=== PATIENT | male | born 1930 | race Caucasian/White ===

== ENCOUNTER → 2017-11-29 | Outpatient (CLI) | payer MEDICARE, OTHER ==
[2017-11-29 14:16] LABS: CREATININE, SERUM 1.32 mg/dL (0.72-1.25)
--- NOTE | 2017-11-30 07:08 | Diagnostic Imaging Report ---
Exam: Head CT without contrast History: Dysphasia, shortness of breath, fatigue Comparison studies: None Technique: Axial images were obtained from the skull base to the vertex. Coronal and sagittal images reconstructed from the axial data. Intravenous contrast: None Findings: Scalp: No abnormalities. Bones: No fractures, blastic or lytic lesions. Brain sulci: Moderately prominent. Ventricles: Moderate compensatory dilatation. No hydrocephalus. Extra-axial spaces: No masses, no fluid collection. Parenchyma: No mass, acute hemorrhage or acute cortical vascular insults. Small chronic insult with encephalomalacia in the left superior cerebellum. Sellar/suprasellar region: No abnormalities. Craniocervical junction: Patent foramen magnum. No Chiari one malformation. Incidental findings: Atherosclerotic calcifications in the carotid siphons in intradural vertebral arteries. IMPRESSION: 1. Moderate generalized volume loss. 2. Chronic small left superior cerebellar insult. Signed by: Dr. Mynor Hebert M.D. on 11/30/2017 7:05 AM
--- NOTE | 2017-11-30 07:26 | Diagnostic Imaging Report ---
Exam: Soft tissue neck CT without IV contrast History: Fatigue, dysphasia Comparison studies: None Technique: Axial images were obtained from the skull base to the thoracic inlet. Coronal and sagittal images reconstructed from the axial data. Intravenous contrast: None Findings: Evaluation of the neck is limited due to the absence of intravenous contrast. In spite of this limitation, Soft tissues: Evaluation of the oral cavity is somewhat limited by metallic artifact related to dental amalgam. Otherwise, no mass or other abnormalities. Upper aerodigestive tract: No gross abnormalities in the nasopharynx, oropharynx, hypopharynx or supraglottic, glottic or infraglottic airway. No abnormalities in the trachea. Lymph nodes: No enlarged lymph nodes. Vessels: Cannot adequately evaluate in the absence of IV contrast. Scattered calcified atherosclerosis with moderate calcified atherosclerosis at the cervical carotid bulbs. Mild ectasia of the included thoracic aorta. Glands (thyroid, parotid and submandibular): Normal in size and symmetric. No masses. Paranasal sinuses: Clear aside from minimal mucosal thickening along the right maxillary sinus alveolar recess. Orbits: Bilateral lens replacements. Otherwise, no abnormalities. Temporal bones: No gross abnormalities. Skull base and facial bones: Intact. Cervical spine: Minimal anterolisthesis of C4 on C5. Multilevel facet arthrosis, worse/severe on the right at C4-C5. Mild foraminal stenosis on the left at C3-C4 and on the right at C4-C5 due to uncovertebral facet arthrosis. No significant canal stenosis. Incidental findings: Median sternotomy wires related to previous thoracic surgery. IMPRESSION: 1. No abnormalities identified to account for the patient's symptoms of dysphagia. 2. Incidental degenerative changes in the cervical spine and scattered calcified atherosclerosis. Signed by: Dr. Mynor Hebert M.D. on 11/30/2017 7:22 AM
== END ==
LOC: CT 13:01
PROVIDERS: ATTEND Internal Medicine Gastroenterology
DX: R13.14 Dysphagia, pharyngoesophageal phase (principal); R53.83 Other fatigue
CPT/HCPCS: 36415; 70450; 70490; 82565; 84520

== ENCOUNTER 2019-03-06 04:41 | Inpatient (IN) | payer MEDICARE, OTHER ==
[~2019-03-06] VITALS: Ht 175.3 cm; Wt 76.4 kg
--- OUTSIDE RECORDS SUMMARY | 2019-03-06 04:43 | XMS REPORT ---
Author Author [facility] Address Unknown Phone Unavailable Care Team Providers Care Industrial Machine Assembler Name Role Phone INGRID ESPINOZA Unavailable Unavailable Problems This patient has no known problems. Allergies, Adverse Reactions, Alerts This patient has no known allergies or adverse reactions. Medications This patient has no known medications. Results Test Description Test Time Test Comments Text Results Atomic Results Result Comments CT SOFT TISSUE NECK WO [place] [address] Patient Name: SRAVAN SEALS MR #: [id number] : 1930 Age/Sex: 87/M Req #: [id number] Adm Physician: Ordered by: INGRID ESPINOZA MD Report #: [id number] Location: CT Room/Bed: Procedure: [id number] CT/CT SOFT TISSUE NECK WO Exam Date: 11/29/17 Exam Time: 1457 REPORT STATUS: Signed Exam: Soft tissue neck CT without IV contrast History: Fatigue, dysphasia Comparison studies: None Technique: Axial images were obtained from the skull base to the thoracic inlet. Coronal and sagittal images reconstructed from the axial data. Intravenous contrast: None Findings: Evaluation of the neck is limited due to the absence of intravenous contrast. In spite of this limitation, Soft tissues: E valuation of the oral cavity is somewhat limited by metallic artifact related to dental amalgam. Otherwise, no mass or other abnormalities. Upper aerodigestive tract: No gross abnormalities in the nasopharynx, oropharynx, hypopharynx or supraglottic, glottic or infraglottic airway. No abnormalities in the trachea. Lymph nodes: No enlarged lymph nodes. Vessels: Cannot adequately evaluate in the absence of IV contrast. Scattered calcified atherosclerosis with moderate calcified atherosclerosis at the cervical carotid bulbs. Mild ectasia of the included thoracic aorta. Glands (thyroid, parotid and submandibular): Normal in size and symmetric. No masses. Paranasal sinuses: Clear aside from minimal mucosal thickening along the right maxillary sinus alveolar recess. Orbits: Bilateral lens replacements. Otherwise, no abnormalities. Temporal bones: No gross abnormalities. Skull base and facial bones: Intact. Cervical spine: Minimal anterolisthesis of C4 on C5. Multilevel facet arthrosis, worse/severe on the right at C4-C5. Mild foraminal stenosis on the left at C3-C4 and on the right at C4-C5 due to uncovertebral facet arthrosis. No significant canal stenosis. Incidental findings: Median sternotomy wires related to previous thoracic surgery. IMPRESSION: 1. No abnormalities identified to account for the patient's symptoms of dysphagia. 2. Incidental degenerative changes in the cervical spine and scattered calcified atherosclerosis. Signed by: Dr. Verena Hebert M.D. on 11/30/2017 7:22 AM Dictated By: VERENA HEBERT MD 1 Transcribed By: RODNEY on 11/30/17721 COPY TO: INGRID ESPINOZA MD CT BRAIN [place] [address] Patient Name: SRAVAN SEALS MR #: [id number] : 1930 Age/Sex: 87/M Req #: [id number] Adm Physician: Ordered by: INGRID ESPINOZA MD Report #: [id number] Location: CT Room/Bed: Procedure: [id number] CT/CT BRAIN WO Exam Date: 11/29/17 Exam Time: 1457 REPORT STATUS: Signed Exam: Head CT without contrast History: Dysphasia, shortness of breath, fatigue Comparison studies: None Technique: Axial images were obtained from the skull base to the vertex. Coronal and sagittal images reconstructed from the axial data. Intravenous contrast: None Findings: Scalp: No abnormalities. Bones: No fractures, blastic or lytic lesions. Brain sulci: Moderately prominent. Ventricles: Moderate compensatory dilatation. No hydrocephalus. Extra-axial spaces: No masses, no fluid collection. Parenchyma: No mass, acute hemorrhage or acute cortical vascular insults. Small chronic insult with encephalomalacia in the left superior cerebellum. Sellar/suprasellar region: No abnormalities. Craniocervical junction: Patent foramen magnum. No Chiari one malformation. Incidental findings: Atherosclerotic calcifications in the carotid siphons in intradural vertebral arteries. IMPRESSION: 1. Moderate generalized volume loss. 2. Chronic small left superior cerebellar insult. Signed by: Dr. Verena Hebert M.D. on 11/30/2017 7:05 AM Dictated By: VERENA HEBERT MD 4 Transcribed By: RODNEY on 11/30/17704 COPY TO: INGRID ESPINOZA MD
[2019-03-06] MEDS ORDERED: ONDANSETRON HCL INJ 2MG/ML 2ML 2 MG/ML VIAL IV STA (04:47)
[2019-03-06] MEDS ORDERED: PANTOPRAZOLE 40 MG 10ML VIAL IV STA (04:47)
[2019-03-06] MEDS ORDERED: NORCO 7.5-3251 EACH PO (04:50)
[2019-03-06] MEDS ORDERED: METOPROLOL TART25 MG PO (04:50)
[2019-03-06] MEDS ORDERED: LASIX40 MG PO (04:50)
[2019-03-06] MEDS ORDERED: LYRICA50 MG PO (04:50)
[2019-03-06] MEDS ORDERED: MIRTAZAPINE15 MG PO (04:50)
[2019-03-06] MEDS ORDERED: PLAVIX75 MG PO (04:50)
[2019-03-06] MEDS ORDERED: METOPROLOL TARTRATE INJ 1 MG/ML VIAL IV ONE (05:00)
[2019-03-06] MEDS ORDERED: HEPARIN 25,000U/0.45% NS 250ML 900 UNIT in Premix Bag 250 ML IV SCH ×4 (05:00→07:15)
[2019-03-06] MEDS ORDERED: HEPARIN SOD (PORCINE) 5,000 UNIT/ML VIAL IV ONE ×2 (05:00→07:00)
[2019-03-06] MEDS ORDERED: ONDANSETRON HCL INJ 2MG/ML 2ML 2 MG/ML VIAL ONE (05:13)
[2019-03-06 05:18] LABS: BASOPHILS % 0.4 % (0.0-1.0); EOSINOPHILS # (AUTO) 0.2 (0.0-0.4); EOSINOPHILS % 2.2 % (0.0-6.0); HEMATOCRIT 44.1 % (38.2-49.6); LYMPHOCYTES # (AUTO) 0.9 (1.0-3.2); MEAN CORPUSCULAR HEMOGLOBIN 33.5 pg (28-32); MEAN CORPUSCULAR HGB CONC 31.7 g/dL (31-35); MEAN CORPUSCULAR VOLUME 105.5 fL (81-99); MONOCYTES # (AUTO) 0.9 (0.2-0.8); MONOCYTES % 12.8 % (4.4-11.3); NEUTROPHILS # (AUTO) 5.2 (2.1-6.9); PLATELET COUNT 148 x10e3/uL (140-360); RED BLOOD COUNT 4.18 x10e6/uL (4.3-5.7); RED CELL DISTRIBUTION WIDTH 16.9 % (11.7-14.4)
--- NOTE | 2019-03-06 05:24 | NUR ---
PT WITH MULTIFOCAL PVCS, COUPLETTS; NOTIFIED AND STATES SPOKE WITH CARDIOLOGY. NO FURTHER ORDERS GIVEN.
[2019-03-06 05:26] LABS: INR 1.13
[2019-03-06 05:27] LABS: PARTIAL THROMBOPLASTIN TIME 42.2 seconds (23.8-35.5)
[2019-03-06 05:34] LABS: ALBUMIN 3.4 g/dL (3.5-5.0); ALBUMIN/GLOBULIN RATIO 0.8 (0.8-2.0); ANION GAP 14.1 mmol/L (8-16); CALCIUM 9.3 mg/dL (8.4-10.2); CREATININE, SERUM 1.19 mg/dL (0.72-1.25); POTASSIUM 4.1 mmol/L (3.5-5.1)
[2019-03-06 05:41] LABS: CREATINE KINASE MB 1.1 ng/mL (0-5.0)
--- NOTE | 2019-03-06 06:15 | Diagnostic Imaging Report ---
EXAMINATION: CHEST SINGLE (PORTABLE) INDICATION: ^chest pain COMPARISON: None FINDINGS: AP view TUBES and LINES: Median sternotomy wires LUNGS: Lungs are well inflated. There are bibasilar atelectasis. There is mild prominence of the central pulmonary vasculature, consistent with pulmonary venous congestion. PLEURA: No pleural effusion or pneumothorax. HEART AND MEDIASTINUM: Cardiac size is severely enlarged. BONES AND SOFT TISSUES: No acute osseous lesion. Soft tissues are unremarkable. UPPER ABDOMEN: No free air under the diaphragm. IMPRESSION: Severe cardiomegaly with mild central pulmonary venous congestion. Signed by: Dr. Claudy Gustafson M.D. on 03/06/2019 6:12 AM
--- NOTE | 2019-03-06 06:23 | Diagnostic Imaging Report ---
EXAM: CT Chest WITHOUT contrast INDICATION: ^eval for lodged food bolus COMPARISON: None TECHNIQUE: Chest was scanned utilizing a multidetector helical scanner from the lung apex through the level of the adrenal glands without administration of IV contrast. Absence of intravenous contrast decreases sensitivity for detection of lymphadenopathy and vascular pathology. Coronal and sagittal reformations were obtained. Routine protocol was performed. IV CONTRAST: None COMPLICATIONS: None RADIATION DOSE: Total DLP: 546.42 mGy*cm Estimated effective dose: (DLP x 0.014 x size factor) mSv CTDIvol has been reviewed. It is below the limits set by the Radiation Protocol Committee (RPC). Dose modulation, iterative reconstruction, and/or weight based adjustment of the mA/kV was utilized to reduce the radiation dose to as low as reasonably achievable. FINDINGS: LINES/ TUBES: Median sternotomy wires and numerous mediastinal clips related to CABG. LUNGS AND AIRWAYS: Mild interlobular septal thickening predominantly in the lower lobes. Bilateral mild nonspecific scarring especially in the lingula, which may be postoperative in nature. Mild nonspecific groundglass opacities in the dependent portion of the right upper lobe. Questionable in the anterior left upper lobe. Airways are normal. PLEURA: Scattered calcified pleural plaques in the right lung. Trace right pleural effusion. No pneumothorax. HEART AND MEDIASTINUM: The thyroid gland is normal. No mediastinal, hilar or axillary lymphadenopathy. Multiple small, benign-appearing mediastinal lymph nodes. The heart is severely enlarged. There is no pericardial effusion. There are significant atherosclerotic calcifications in the aorta and coronary arteries. Main pulmonary artery measures 3.6 cm. Ascending aorta measures 4.3 cm. UPPER ABDOMEN: The liver has a mildly lobulated appearance with enlargement of the left hepatic and caudate lobes. Trace ascites around the liver and spleen. 2.3 cm left parapelvic renal cyst. Moderate vascular calcifications. Engorgement of mesenteric vessels. 1.4 cm nodularity adjacent to the SMA (series 2, image 124). BONES: The visualized bony thorax is within normal limits. SOFT TISSUES: Unremarkable. IMPRESSION: 1. Unremarkable esophagus. No evidence of obstruction. 2. Severe cardiomegaly with postoperative changes of CABG. Mildly prominent main pulmonary artery measures 3.6 cm. 3. Findings of central pulmonary venous congestion and mild nonspecific scarring. 4. Scattered mild groundglass opacities in both upper lobes, likely infectious in etiology. 5. Cirrhosis with ascites. Signed by: Dr. Claudy Gustafson M.D. on 03/06/2019 6:20 AM
[2019-03-06 06:45] LABS: CLARITY,URINE CLOUDY (CLEAR); COLOR,URINE YELLOW (YELLOW); LEUKOCYTE ESTERASE ,URINE NEGATIVE (NEGATIVE); NITRITE,URINE NEGATIVE (NEGATIVE); PROTEIN,URINE DIPSTICK 3+ (NEGATIVE)
[2019-03-06] MEDS ORDERED: SODIUM CHLORIDE FLUSH 10 ML SYR INJ PRN (06:45)
[2019-03-06] MEDS ORDERED: LEVOFLOXACIN 750MG/D5W 150ML IV SCH (06:45)
[2019-03-06 06:46] LABS: BILIRUBIN,URINE 1+ (NEGATIVE); KETONES,URINE NEGATIVE (NEGATIVE); URINE UROBILINOGEN 1 mg/dL (0.2 - 1)
--- NOTE | 2019-03-06 06:52 | NUR ---
LIBAN FROM PHARMACY HERE AT [facility] VERIFYING ACCURATE HEPARIN STARTING DOSAGE. REORDERED HEPARIN ACCORDING TO THE NEW WEIGHT. LIBAN FROM PHARMACY TO FOLLOW UP ACCORDING TO STEP 4 OF THE HOSPITAL HEPARIN PROTOCOL.
[2019-03-06 07:04] LABS: BACTERIA,URINE FEW /HPF; EPITHELIAL CELLS,URINE FEW /LPF
--- NOTE | 2019-03-06 07:05 | NUR ---
REPORT GIVEN TO JEET GALLOWAY DAY SHIFT NURSE.
--- NOTE | 2019-03-06 07:52 | NUR ---
HISTORY AND PHYSICAL cc; rapid HR HPI: 88yoM, PCP , ate an orange, then felt like it was stuck in throat. No cough; DId have SOB; Found to have A.fib with RVR and ground glass findings on CT lungs; also findings of liver cirrhosis. PMH: CAD s/p CABG, HTN PShx: CABG allergies see emr fh/Sh; Meds; see MAR ros; no f/c/s/N/V/D/MAGALLON/vision changes/back pain/leg pain/skin rash v/s; revd PE tired appearing anicteric ns1s2; IRREGULAR mod bs soft nt nd 2+ leg edema B/L skin dry a&ox3; alamo n. mood labs/meds rev'd A/P: 88yoM A.fib with rVR CAD with hx CABG Cardiomegaly NUNU Hyperglycemia Cirrhosis Acute bronchitis Peripheral edema PLAN AV blockade; AC hba1c/lipids/TSH Physical therapy consult AC Hero Mondragon MD, PhD
[2019-03-06 08:15] LABS: CHOL/HDL RATIO 2.3 (3.9-4.7)
--- NOTE | 2019-03-06 08:24 | NUR ---
DR VEGA IN ROOM WITH PT
[2019-03-06 08:35] LABS: THYROID STIMULATING HORMONE 4.002 uIU/mL (0.350-4.940)
[2019-03-06] MEDS: LEVOFLOXACIN 750MG/D5W 150ML 150 ML IV SCH (08:44)
[2019-03-06] MEDS: FAMOTIDINE 20 MG/2 ML VIAL IV SCH ×2 (08:44→20:34)
[2019-03-06] MEDS: PREGABALIN 50 MG CAP PO SCH (08:48)
[2019-03-06] MEDS: CLOPIDOGREL BISULFATE 75 MG TAB PO SCH (08:48)
[2019-03-06] MEDS ORDERED: PANTOPRAZOLE 40 MG 10ML VIAL IV SCH (09:00)
[2019-03-06] MEDS: FUROSEMIDE 20 MG TAB PO SCH (11:52)
[2019-03-06 12:23] LABS: CREATINE KINASE MB 1.3 ng/mL (0-5.0)
[2019-03-06 13:25] VITALS: BP 141/67
--- NOTE | 2019-03-06 13:25 | NUR ---
PATIENT RECEIVED FROM ER PER STRETCHER. ALERT AND VERBALLY RESPONSIVE. SKIN WARM AND DRY TO TOUCH. RESPIRATION EVEN AND UNLABORED; O2 IN PLACE VIA N/C. BRUISES TO BOTH ARMS AND LEFT THIGH, SCRATCHES TO LEFT LEG. DENIED PAIN AT THIS TIME. PATIENT ORIENTED TO SURROUNDINGS. BED IN LOWER POSITION, CALL LIGHT AT REACH, INSTRUCTED TO CALL FOR ASSISTANCE NEEDED. AT BED SIDE.
[2019-03-06 13:42] VITALS: BP 141/67
[2019-03-06] MEDS: METOPROLOL TARTRATE 25 MG TAB PO SCH ×2 (14:41→21:11)
[2019-03-06 15:13] VITALS: BP 111/68
--- NOTE | 2019-03-06 17:00 | NUR ---
BED SIDE ECHO COMPLETED. PATIENT IN BED RESTING, HEPARIN DRIP IN PROGRESS. CALL LIGHT AT REACH.
--- NOTE | 2019-03-06 17:46 | History and Physical ---
Cardiac Consultation REASON FOR CONSULTATION: Chest pain, atrial fibrillation. HISTORY: An 88-year-old gentleman, very poor historian. He is known with coronary artery disease. He had coronary artery bypass surgery for 4-vessel in 2005. He is known to have aortic regurgitation, hypertension, peripheral neuropathy, and peripheral arterial vascular disease. The patient seen and followed by Dr. Cisneros in my office. The patient really truly does not want much to be done. Latest ischemic evaluation was in June 2017. At that time, it was very abnormal and cardiac catheterization with possible intervention recommended, however, the patient elected only to be treated medically. Regardless, the patient did well and he is doing well. However, for the last 6 months or so or even more, he does have easy fatigability, shortness of breath on exertion, and he need "to space himself." He is taking his medication as described. He denied having any anginal chest pain. However, he does have class 3 symptoms of shortness of breath and chest tightness in addition to some orthopnea, but no paroxysmal nocturnal dyspnea. There is no syncope or presyncope. The patient came to this institution because "he was eating orange and it stuck in his esophagus." Basically chest tightness. He came to here. He was in atrial fibrillation with fast ventricular response. The case discussed with the ER physician, given metoprolol, started on IV heparin. Serial cardiac enzymes to be done. Beta-yasmin increased and medication adjusted and to be admitted. He had CT scan and chest x-ray and it is suspicious of pneumonia. He was started on Levaquin by ER team. Finding of liver cirrhosis also noted on that scan and ascites. I visited with the patient, was doing better. His heart rate is now in the 90s, still in atrial fibrillation. He has had no more chest tightness or pressure. He is weak and he said I am like that for sometime. The patient really truly minimize his symptoms and he only wants medical and conservative approach and he is scared. HOME MEDICATIONS: Include Plavix 75 mg a day, metoprolol succinate 25 mg a day, Lasix 20 mg a day, mirtazapine 30 mg a day, CoQ10, Vicodin. ALLERGIES: PENICILLIN AND MORPHINE. THE PATIENT REFUSED STATINS IN THE PAST. PAST MEDICAL HISTORY: 1. Coronary artery disease, coronary artery bypass surgery in 2005 for 4-vessels, left internal mammary artery to LAD, saphenous vein graft to the PDA, saphenous vein graft to the 1st obtuse marginal, saphenous vein graft to the 2nd obtuse marginal. 2. Hypertension. 3. Aortic stenosis and regurgitation. 4. Peripheral arterial vascular disease. 5. Peripheral neuropathy. 6. Colon cancer, status post surgery and chemotherapy in 2005. 7. Tonsillectomy. 8. Fistulectomy. SOCIAL HISTORY: He is . He stopped smoking many years ago. He is a social alcohol drinker. He is retired. FAMILY HISTORY: Father in his 80s with kidney failure. Mother in her 70s, questionable cause of . He lost his only two brothers and he does have five healthy children and grandchildren. REVIEW OF SYSTEMS: GENERAL: Weakness, failure to thrive. No fever, no chills. HEENT: Decreased hearing. PULMONARY: Class 3 to 4 shortness of breath on exertion. CARDIAC: No angina, but severe shortness of breath on exertion, orthopnea. GI: Poor appetite. HEMATOLOGY: No bleeding. No bruising. : Increased frequency, incontinence. MUSCULOSKELETAL: Back pain. PERIPHERAL VASCULAR: Leg edema and claudication. NEUROLOGIC: Weakness, dizziness, poor appetite. PHYSICAL EXAMINATION: VITAL SIGNS: Height of 5 feet 9 inches, weight of 164 pounds. Blood pressure is 110/80, heart rate of 90, irregularly irregular of atrial fibrillation, temperature of 98 Fahrenheit. HEENT: Decreased hearing noted. NECK: Elevation of jugular venous pulsation. CHEST: Bilateral basal crackles. HEART: Irregularly irregular rate of atrial fibrillation. PMI in fifth left intercoastal space. Aortic ejection systolic murmur left sternal border. ABDOMEN: Liver edge is palpable. Soft. EXTREMITIES: Mild peripheral edema. Decreased pulses. NEUROLOGIC: Generalized weakness. No localized deficits. LABORATORY DATA: Sodium 138, potassium 4.1, bicarb of 26, BUN 21, creatinine of 1.2, glucose of 147. White blood cell count of 7.3, hemoglobin 14, hematocrit 44%. Triglycerides of 104, total cholesterol of 112, HDL of 49, LDL of 42, TSH of 4. Chest x-ray, cardiomegaly and chronic changes. IMPRESSION AND PLAN: 1. Chest pain, plausible with patient with bypass surgery in 2005 to be advanced coronary artery disease and myocardial infarction. 2. Atrial fibrillation with rapid ventricular response. 3. Exacerbation of systolic congestive heart failure. 4. Aortic stenosis murmur. 5. Peripheral arterial vascular disease. 6. Hypercholesteremia. 7. Debility and weakness. 8. Very severe advanced congestive heart failure like symptoms. 9. Liver cirrhosis diagnosed on CT scan today. Cardiac brunner, recommendation will be as follows, continuation of IV heparin for the time being, serial cardiac enzymes, checking BMP. Beta-yasmin, diuretics, antiplatelet agent, and heparin. We should consider probably CHELLE inhibitor or ARB if his blood pressure permits. The patient's prognosis is guarded. He is having progressive advanced congestive heart failure symptoms. He expresses wishes to be treated conservatively. Probably, we should also discuss code status. I will do that when he reach a room out of ER. We will follow patient's progression with you. I would like to thank you for the kind referral. MD JAZMIN Kaufman/GLENDYL /[id number]
[2019-03-06 19:45] VITALS: BP 109/66
[2019-03-06] MEDS ORDERED: HYDROCODONE/APAP 7.5MG-325MG 1 EA TAB PO PRN (20:30)
--- NOTE | 2019-03-06 20:30 | NUR ---
PATIENT REQUESTING PAIN MEDICATION. CALLED DR. VEGA, RECEIVED ORDERS.
--- NOTE | 2019-03-06 20:30 | NUR ---
LAB CRITICAL FOR PTT 144. REDRAW BLOOD.
--- NOTE | 2019-03-06 20:40 | NUR ---
X1 STICK FOR PTT AND SENT FOR LABS.
[2019-03-06 22:54] VITALS: BP 109/66
[2019-03-07] VITALS (7 sets, daily range): BP systolic 97–115; BP diastolic 54–74
[2019-03-07] MEDS: HYDROCODONE/APAP 7.5MG-325MG 1 EA TAB PO PRN ×4 (01:17→19:30)
[2019-03-07] MEDS: METOPROLOL TARTRATE 25 MG TAB PO SCH ×2 (05:26→14:43)
[2019-03-07 06:07] LABS: BASOPHILS % 0.5 % (0.0-1.0); EOSINOPHILS # (AUTO) 0.1 (0.0-0.4); EOSINOPHILS % 1.7 % (0.0-6.0); HEMATOCRIT 38.2 % (38.2-49.6); HEMOGLOBIN 12.4 g/dL (14.0-18.0); LYMPHOCYTES # (AUTO) 0.9 (1.0-3.2); LYMPHOCYTES % 10.2 % (18.0-39.1); MEAN CORPUSCULAR HGB CONC 32.5 g/dL (31-35); MEAN CORPUSCULAR VOLUME 104.7 fL (81-99); MONOCYTES # (AUTO) 1.4 (0.2-0.8); MONOCYTES % 16.2 % (4.4-11.3); NEUTROPHILS # (AUTO) 5.9 (2.1-6.9); NEUTROPHILS % 70.6 % (38.7-80.0); PLATELET COUNT 125 x10e3/uL (140-360); RED BLOOD COUNT 3.65 x10e6/uL (4.3-5.7); RED CELL DISTRIBUTION WIDTH 16.6 % (11.7-14.4)
--- NOTE | 2019-03-07 06:23 | Diagnostic Imaging Report ---
EXAMINATION: CHEST SINGLE (PORTABLE) INDICATION: Pneumonia. COMPARISON: Chest x-ray 03/06/2019. FINDINGS: AP view TUBES and LINES: Median sternotomy wires. A new right PICC line with tip at mid SVC. LUNGS: Lungs are moderately inflated. There are bibasilar atelectasis. There is mild prominence of the central pulmonary vasculature, consistent with pulmonary venous congestion. PLEURA: No pleural effusion or pneumothorax. HEART AND MEDIASTINUM: Cardiac size is severely enlarged. BONES AND SOFT TISSUES: No acute osseous lesion. Chronic appearing fracture deformity of the right humeral neck and head. Soft tissues are unremarkable. UPPER ABDOMEN: No free air under the diaphragm. IMPRESSION: Stable severe cardiomegaly with mild central pulmonary venous congestion. Signed by: Dr. Claudy Gustafson M.D. on 03/07/2019 6:19 AM
[2019-03-07 06:46] LABS: ALANINE AMINOTRANSFERASE 9 IU/L (0-55); ALBUMIN 2.7 g/dL (3.5-5.0); ALBUMIN/GLOBULIN RATIO 0.8 (0.8-2.0); ALKALINE PHOSPHATASE 132 IU/L (40-150); ANION GAP 11.7 mmol/L (8-16); BLOOD UREA NITROGEN 22 mg/dL (7-26); BUN/CREATININE RATIO 22 (6-25); CALCIUM 8.5 mg/dL (8.4-10.2); CARBON DIOXIDE 25 mmol/L (22-29); CHLORIDE 103 mmol/L (98-107); CREATININE, SERUM 1.02 mg/dL (0.72-1.25); EST GLOMERULAR FILTRATION RATE > 60 ML/MIN (60-); GLUCOSE 88 mg/dL (74-118); POTASSIUM 3.7 mmol/L (3.5-5.1); SODIUM 136 mmol/L (136-145)
[2019-03-07 07:25] LABS: CREATINE KINASE MB 0.8 ng/mL (0-5.0)
--- NOTE | 2019-03-07 07:25 | NUR ---
PATIENT SITTING AT BED SIDE WATCHING TV, NO RESPIRATORY DISTRESS OBSERVED. ALL PERSONAL ITEMS CLOSE TO PATIENT. BED IN LOWER POSITION, CALL LIGHT AT REACH.
--- NOTE | 2019-03-07 07:26 | NUR ---
Addendum to H&P PMH: colon cancer s/p resection, chr leg edema PSHx: CABG, partial colon resection SH: ;no cigs/etoh; single Hero Mondragon MD, PhD
--- NOTE | 2019-03-07 07:29 | NUR ---
IM- progress note O/N no events ros; no f/c/s/N/V/D/MAGALLON/vision changes/back pain/leg pain/skin rash v/s; revd PE tired appearing anicteric ns1s2; IRREGULAR mod bs soft nt nd 2+ leg edema B/L skin dry a&ox3; alamo n. mood labs/meds rev'd A/P: 88yoM A.fib with rVR CAD with hx CABG Cardiomegaly NUNU Hyperglycemia Cirrhosis Acute bronchitis Peripheral edema PLAN AV blockade; AC hba1c/lipids/TSH Physical therapy consult AC 03/07 Hba1c/LDL 5.4/42; continue diuresis; strict I/O.HR better; check renal fn. Hero Mondragon MD, PhD
[2019-03-07 07:40] LABS: CHOL/HDL RATIO 2.2 (3.9-4.7)
--- NOTE | 2019-03-07 08:00 | NUR ---
SPOKE WITH MD REGARDING ABNORMAL LAB RESULT, NO NEW ORDER RECEIVED.
[2019-03-07] MEDS ORDERED: SODIUM CHLORIDE 0.9% 250ML 250 ML ONE (08:48)
[2019-03-07] MEDS: CLOPIDOGREL BISULFATE 75 MG TAB PO SCH (09:00)
--- NOTE | 2019-03-07 09:00 | NUR ---
PATIENT NOTED WITH PTT OF 132.1, PTT RECHECKED WITH THE READING OF 139.8. HEPARIN INFUSION ON HOLD FOR 60 MN PER PROTOCOL, WILL DECREASE BY 200UNITS/HR. CALLED , MESSAGE LEFT, AWAITING CALL LBACK.
[2019-03-07] MEDS: PREGABALIN 50 MG CAP PO SCH (09:09)
[2019-03-07] MEDS: LEVOFLOXACIN 750MG/D5W 150ML 150 ML IV SCH (09:09)
[2019-03-07] MEDS: FAMOTIDINE 20 MG/2 ML VIAL IV SCH ×2 (09:09→21:39)
--- NOTE | 2019-03-07 09:56 | NUR ---
CALL BACK RECEIVED FROM DR JOHNSON, NOTIFIED OF ABNORMAL LAB RESULT. NEW ORDERS RECEIVED TO D/C HEPARIN AND GIVE PLAVIX.
[2019-03-07] MEDS: FUROSEMIDE 20 MG TAB PO SCH (10:05)
--- NOTE | 2019-03-07 11:47 | NUR ---
SPOKE WITH MD REGARDING PLAVIX, ORDER RECEIVED TO HOLD FOR TODAY.
[2019-03-07] MEDS: FUROSEMIDE INJ 10 MG/ML 4 ML VIAL IV SCH ×2 (12:47→21:00)
--- NOTE | 2019-03-07 13:05 | NUR ---
PATIENT OFF UNIT TO RADIOLOGY.
--- NOTE | 2019-03-07 13:56 | NUR ---
PATIENT BACK TO UNIT FROM RADIOLOGY. OUT OF BED TO CHAIR TALKING TO . CALL LIGHT AT REACH.
--- NOTE | 2019-03-07 14:38 | Diagnostic Imaging Report ---
Abdomen, 3 views dated 03/07/2019. History: Cirrhosis. Findings: The intestinal gas pattern is nonobstructive. There no masses. Arterial, iliac and femoral vascular calcification. No subdiaphragmatic air. There is moderate-severe lumbar spine scoliosis and degenerative changes. IMPRESSION: No acute abdominal abnormality. Signed by: Dr. Seun Interiano DO on 03/07/2019 2:35 PM
--- NOTE | 2019-03-07 15:14 | Diagnostic Imaging Report ---
EXAM: CT Abdomen and Pelvis WITHOUT contrast INDICATION: Abdominal pain COMPARISON: Chest CT, 03/06/2019 TECHNIQUE: Abdomen and pelvis were scanned utilizing a multidetector helical scanner from the lung base to the pubic symphysis without administration of IV contrast. Absence of intravenous contrast decreases sensitivity for detection of focal lesions and vascular pathology. Coronal and sagittal reformations were obtained. Routine protocol was performed. Dose modulation, iterative reconstruction, and/or weight based adjustment of the mA/kV was utilized to reduce the radiation dose to as low as reasonably achievable. IV CONTRAST: None. ORAL CONTRAST: None RADIATION DOSE: Total DLP: 482.24 mGy*cm Estimated effective dose: (DLP x 0.015 x size factor) mSv COMPLICATIONS: None FINDINGS: LINES and TUBES: None. LOWER THORAX: Lung bases clear. Trace pleural effusions. Marked cardiomegaly. HEPATOBILIARY: Lobulated hepatic borders which may be seen with cirrhosis. No focal hepatic lesions. No biliary ductal dilation. GALLBLADDER: Calcified gallstones seen. No gallbladder wall thickening. No wall thickening. SPLEEN: No splenomegaly. PANCREAS: No focal masses or ductal dilatation. ADRENALS: No adrenal nodules KIDNEYS/URETERS: No hydronephrosis. 2.0 cm left parapelvic renal cyst. No contour deforming mass. 0.9 cm nonobstructing intrarenal calculus on the right. 0.2 cm punctate nonobstructing renal calculus on the left. GI TRACT: No abnormal distention, wall thickening, or evidence of bowel obstruction. There are diverticula throughout the colon with no CT evidence for acute diverticulitis. Appendix is normal. PELVIC ORGANS/BLADDER: Urinary bladder appears unremarkable. No discrete abnormal mass or fluid collection in the pelvis. LYMPH NODES: No dominant lymph node mass in the abdomen, retroperitoneum or pelvis. There are multiple prominent para-aortic lymph nodes measuring 1.3 cm (series 2, image 37), 1.3 cm (image 34), 1.1 cm (image 29). VESSELS: The abdominal aorta is atherosclerotic with extensive calcified plaque, no aneurysm. PERITONEUM / RETROPERITONEUM: Small diffuse volume of ascites. No pneumoperitoneum. BONES: No acute or suspicious bony lesion. Degenerative changes are seen in the spine. Wire sternotomy sutures are present. SOFT TISSUES: Superficial surrounding soft tissue unremarkable. There are bilateral inguinal hernias containing fat. IMPRESSION: 1. Cirrhotic hepatic morphology. Small volume of ascites. Diffuse mesenteric edema. 2. Cholelithiasis. No gallbladder wall thickening. No evidence for dilatation of the biliary tree. 3. Bilateral nonobstructing intrarenal calculi, largest measuring 9 mm on the right. 4. Moderate para-aortic lymphadenopathy which may be reactive. In the proper clinical setting, neoplastic etiology is also a consideration. Staff: Camron Signed by: Dr. Owen Lyon M.D. on 03/07/2019 3:11 PM
--- NOTE | 2019-03-07 16:50 | NUR ---
PATIENT URINAL EMPTIED. SITTING AT BED SIDE TALKING TO FAMILY MEMBERS VISITING. CALL LIGHT AT REACH.
--- NOTE | 2019-03-07 19:39 | NUR ---
RECEIVED PT IN BED AOX3 .C/O PAIN AT THE LEFT HIP .RESPIRATIONS ARE EVEN AND UNLABORED .FAMILY AT HE BEDSIDE .CALL LIGHT WITH IN REACH .CONTINUE TO MONITOR
[2019-03-07] MEDS ORDERED: ZOLPIDEM TARTRATE 5 MG TAB PO PRN (22:30)
[2019-03-07] MEDS: ACETAMINOPHEN 325 MG TAB PO PRN (22:56)
[2019-03-08 00:35] VITALS: BP 101/74
[2019-03-08] MEDS: METOPROLOL TARTRATE 25 MG TAB PO SCH ×4 (01:47→22:00)
[2019-03-08] MEDS: HYDROCODONE/APAP 7.5MG-325MG 1 EA TAB PO PRN ×3 (01:47→18:20)
--- NOTE | 2019-03-08 02:01 | NUR ---
PT C/O PAIN AND INSOMNIA CALLED DR VEGA AND GOT THE ORDER FOR TYLENOL AND AMBIEN .MEDICATED THE PT WITH AMBIEN AND TYLENOL .FAMILY AT THE BEDSIDE .CONTINUE TO MONITOR
--- NOTE | 2019-03-08 07:33 | NUR ---
PT RESTING AND DENIES PAIN .CALL LIGHT WITH IN REACH FAMILY AT THE BEDSIDE .REPORT GIVEN TO THE ON COMING NURSE
[2019-03-08 08:00] VITALS: BP_SYST 102; BP_SYST 108; BP_DIAS 62; BP_DIAS 68
[2019-03-08] MEDS: FAMOTIDINE 20 MG/2 ML VIAL IV SCH ×2 (09:09→21:45)
[2019-03-08] MEDS: LEVOFLOXACIN 750MG/D5W 150ML 150 ML IV SCH (09:09)
[2019-03-08] MEDS: PREGABALIN 50 MG CAP PO SCH (09:10)
[2019-03-08] MEDS: FUROSEMIDE INJ 10 MG/ML 4 ML VIAL IV SCH ×2 (09:26→21:45)
--- NOTE | 2019-03-08 14:44 | NUR ---
IM- progress note O/N no events ros; no f/c/s/N/V/D/MAGALLON/vision changes/back pain/leg pain/skin rash v/s; revd PE tired appearing anicteric ns1s2; IRREGULAR mod bs soft nt nd 2+ leg edema B/L skin dry a&ox3; alamo n. mood labs/meds rev'd A/P: 88yoM A.fib with rVR CAD with hx CABG Cardiomegaly NUNU Hyperglycemia Cirrhosis Acute bronchitis Peripheral edema PLAN AV blockade; AC hba1c/lipids/TSH Physical therapy consult AC 03/07 Hba1c/LDL 5.4/42; continue diuresis; strict I/O.HR better; check renal fn. 03/08 stable; physical therapy; diuresis Hero Mondragon MD, PhD
--- NOTE | 2019-03-08 16:40 | NUR ---
Unable to check back on the patient for PT eval this afternoon due to time constraints. Will f/u tomorrow. Nurse Made aware. Addendum: 03/08/19 at 1745 by Danial Sheffield PT Amended: Links added.
--- NOTE | 2019-03-08 18:35 | NUR ---
Nutrition Intervention Note RD Recommendation(s) for Physician: -Continue cardiac diet as ordered -Rec Ensure BID to promote protein-calorie intake -RD discussed menu options with family and obtained food preferences -The patient meets criteria for MODERATE protein-calorie malnutrition. Plan of Care: RD following, monitoring for tolerance and adequacy, ONS rec Nutrition reason for involvement: Diagnosis RD Assessment 03/08 Chart reviewed. 88yo M, who was admitted for chest pain. Abd/pel CT showed cirrhosis with small ascites. CXR showed stable severe cardiomegaly with mild central pulmonary venous congestion. Currently on diuretics. Visited pt in the room. Per , pt has had poor appetite INFANT AND TODDLER TEACHER. Pt has lost about 30+ lbs for the last 6 months. Reported UBW ~200lbs. Pt has some moderate fat and muscle loss per observation. No GI complains noted. No chewing or swallowing difficulty reported. RD offered Ensure BID to increase protein-calorie intake; family was agreeable with plan. RD also discussed menu options and obtained food preferences. Will continue to monitor and follow. Principal Problems/Diagnoses: A.fib with RVR, cardiomegaly, CAD, NUNU, cirrhosis PMH: CAD, HTN, aortic stenosis, PVD, colon cancer GI: abdomen soft, non-tender, LBM 03/08 Skin: no pressure wound noted Labs: (03/08) no chemistry lab Meds: lasix, pepcid Ht: 69in Wt: 168.5lb BMI: 24.9kg/m2 IBW: 160lb Malnutrition Evaluation (03/08) The patient meets criteria for MODERATE protein-calorie malnutrition. Energy intake: <75% of estimated energy requirements for >3 months Weight loss: >10% in 6 months (Chronic) Fat loss: Moderate clavicle protrusion Muscle loss: Moderate temporal depression Supporting Evidence: Fluid accumulation: unable to evaluate Functional Status: measurably reduced from ambulating at home to needing assistance now Nutrition Prescription (Diet Order): cardiac diet Estimated Nutritional Needs: Calories: 1900 2660kcal(25-35kcal/kg/d) Weight used: CBW Protein: 76 114g(1-1.5g/kg/d) Weight used: CBW Diet Adequacy: Not meeting calorie needs, Not meeting protein needs Diet Education Needs Assessment: Diet education indicated, but patient not appropriate for education at this time. Nutrition Care Level: mod Nutrition Diagnosis: Inadequate oral intake related to acute illness as evidenced by weight loss and poor appetite for 6 months. Goal: Patient will meet 75-100% of estimated needs by follow up Progress: N/A Interventions: modified diet, commercial beverage Monitoring/Evaluation: Total energy intake, Total protein intake, Modified diet, Liquid supplement, Weight change Signed: Ira Fay MS, RD, LD
--- NOTE | 2019-03-08 19:15 | NUR ---
BS rounds completed with morning nurse. Pt resting quietly in bed with eyes closed. Right side lying. Family at bedside. Call villasenor within reach. Bed low and locked. Will continue to monitor.
[2019-03-09] VITALS (8 sets, daily range): BP systolic 86–111; BP diastolic 50–95
[2019-03-09] MEDS: HYDROCODONE/APAP 7.5MG-325MG 1 EA TAB PO PRN ×3 (03:10→17:37)
--- NOTE | 2019-03-09 04:00 | NUR ---
Pt restless and anxious before going to sleep. Family refused 0400 vitals. Pt resting quietly with eyes closed. No acute distress noted.
--- NOTE | 2019-03-09 05:00 | NUR ---
Family refused 0500 labs. Family asked for blood to be drawn when Pt is awake.
[2019-03-09] MEDS: METOPROLOL TARTRATE 25 MG TAB PO SCH ×2 (06:00→17:37)
--- NOTE | 2019-03-09 08:04 | NUR ---
IM- progress note O/N no events ros; no f/c/s/N/V/D/MAGALLON/vision changes/back pain/leg pain/skin rash v/s; revd PE tired appearing anicteric ns1s2; IRREGULAR mod bs soft nt nd 2+ leg edema B/L skin dry a&ox3; alamo n. mood labs/meds rev'd A/P: 88yoM A.fib with rVR CAD with hx CABG Cardiomegaly NUNU Hyperglycemia Cirrhosis Acute bronchitis Peripheral edema PLAN AV blockade; AC hba1c/lipids/TSH Physical therapy consult AC 03/07 Hba1c/LDL 5.4/42; continue diuresis; strict I/O.HR better; check renal fn. 03/08 stable; physical therapy; diuresis 03/09 check labs on monserrat Mondragon MD, PhD
[2019-03-09] MEDS: FAMOTIDINE 20 MG/2 ML VIAL IV SCH (09:05)
[2019-03-09] MEDS: LEVOFLOXACIN 750MG/D5W 150ML 150 ML IV SCH (09:05)
[2019-03-09 09:14] LABS: BASOPHILS % 0.2 % (0.0-1.0); EOSINOPHILS # (AUTO) 0.1 (0.0-0.4); EOSINOPHILS % 0.5 % (0.0-6.0); HEMOGLOBIN 13.8 g/dL (14.0-18.0); LYMPHOCYTES % 8.2 % (18.0-39.1); MEAN CORPUSCULAR HEMOGLOBIN 33.7 pg (28-32); MEAN CORPUSCULAR HGB CONC 32.1 g/dL (31-35); MEAN CORPUSCULAR VOLUME 105.1 fL (81-99); MONOCYTES # (AUTO) 1.3 (0.2-0.8); MONOCYTES % 10.7 % (4.4-11.3); NEUTROPHILS # (AUTO) 9.8 (2.1-6.9); NEUTROPHILS % 79.7 % (38.7-80.0); PLATELET COUNT 154 x10e3/uL (140-360); RED BLOOD COUNT 4.09 x10e6/uL (4.3-5.7); RED CELL DISTRIBUTION WIDTH 16.4 % (11.7-14.4)
[2019-03-09] MEDS: MIRTAZAPINE 15 MG TAB PO SCH (09:26)
[2019-03-09] MEDS: PREGABALIN 50 MG CAP PO SCH (09:26)
--- NOTE | 2019-03-09 09:30 | NUR ---
Dr. Huitron here to see patient and made him aware that pt is hypotensive this morning BP-92/50. Pt is was hypotensive last night aswell. Pt is asymptomatic at this time. Received new orders to discontinue lasix.
[2019-03-09 09:35] LABS: ALBUMIN 2.9 g/dL (3.5-5.0); ALBUMIN/GLOBULIN RATIO 0.7 (0.8-2.0); CALCIUM 9.6 mg/dL (8.4-10.2); CREATININE, SERUM 1.51 mg/dL (0.72-1.25)
[2019-03-09 09:44] LABS: MAGNESIUM 2.1 MG/DL (1.3-2.1); PHOSPHORUS 3.1 MG/DL (2.3-4.7)
--- NOTE | 2019-03-09 18:21 | NUR ---
Pt family spoke with Dr. Huitron this morning about hospice. Notified Dr. Mondragon of pt wishes and received new orders to consult hospice.
[2019-03-10] VITALS: BP 107/71
[2019-03-10] MEDS: HYDROCODONE/APAP 7.5MG-325MG 1 EA TAB PO PRN ×3 (01:55→22:27)
[2019-03-10] MEDS: FAMOTIDINE 20 MG/2 ML VIAL IV SCH ×3 (02:06→21:19)
[2019-03-10] MEDS: METOPROLOL TARTRATE 25 MG TAB PO SCH ×2 (02:23→07:00)
[2019-03-10 04:00] VITALS: BP 98/75
[2019-03-10] MEDS: MIRTAZAPINE 15 MG TAB PO SCH (09:15)
[2019-03-10] MEDS: LEVOFLOXACIN 750MG/D5W 150ML 150 ML IV SCH (09:15)
[2019-03-10] MEDS: PREGABALIN 50 MG CAP PO SCH (09:15)
--- NOTE | 2019-03-10 11:22 | NUR ---
IM- progress note O/N no events ros; no f/c/s/N/V/D/MAGALLON/vision changes/back pain/leg pain/skin rash v/s; revd PE tired appearing anicteric ns1s2; IRREGULAR mod bs soft nt nd 2+ leg edema B/L skin dry a&ox3; alamo n. mood labs/meds rev'd A/P: 88yoM A.fib with rVR CAD with hx CABG Cardiomegaly NUNU Hyperglycemia Cirrhosis Acute bronchitis Peripheral edema PLAN AV blockade; AC hba1c/lipids/TSH Physical therapy consult AC 03/07 Hba1c/LDL 5.4/42; continue diuresis; strict I/O.HR better; check renal fn. 03/08 stable; physical therapy; diuresis 03/09 check labs on lasix 03/10 family wants hospice. CM consulted. Hero Mondragon MD, PhD
[2019-03-10 12:09] VITALS: BP 103/70
--- NOTE | 2019-03-10 14:55 | NUR ---
SW received Hospice consult for patient. SW spoke with family at bedside regarding aftercare plan. Family is aware and in agreement to plan but would like more information regarding their hospice options. According to retail supervisor she does not want him in a [facility] and would like to take him home. JAMAL informed them of MD recommendation in order to ensure a continuity of care and educated family on the option to select their preferred Hospice. SW provided them with a list of Hospice choices and ALOC letter. 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 SW explained once she selects the hospice they will be able to come in and speak with her in detail about the provided services. CM to follow up with family.
--- NOTE | 2019-03-10 16:00 | NUR ---
Spoke with Dr. Mondragon today related to hospice consult and he spoke with case management. Case management spoke with family about hospice.
--- NOTE | 2019-03-10 19:11 | NUR ---
BS rounds completed with morning nurse. Pt alert to name. Sitting up on side of bed with family member sitting next to him. No acute distress noted. Call villasenor within reach. Bed low and locked. Will continue to monitor.
[2019-03-10 20:00] VITALS: BP 103/60
[2019-03-11] VITALS (8 sets, daily range): BP systolic 102–126; BP diastolic 69–95
--- NOTE | 2019-03-11 | NUR ---
Pt/Family refused 0000 vitals. Pt resting quietly with eyes closed. Resp even and unlabored. No distress noted. Call bel within reach. Family at bedside. Will continue to monitor.
[2019-03-11] MEDS: ACETAMINOPHEN 325 MG TAB PO PRN (01:40)
[2019-03-11] MEDS: HYDROCODONE/APAP 7.5MG-325MG 1 EA TAB PO PRN ×3 (04:45→21:02)
--- NOTE | 2019-03-11 07:15 | NUR ---
PATIENT IN STABLE CONDITION WITH NO S/S OF RESPIRATORY DISTRESS. NO PAIN VOICED. FAMILY MEMBER PRESENT IN ROOM. PITTING EDEMA NOTED TO BILATERAL LOWER EXTREMITIES. BED ALARM ON. CALL LIGHT IS WITHIN REACH, PATIENT INSTRUCTED TO CALL FOR ASSISTANCE NEEDED.
--- NOTE | 2019-03-11 07:19 | NUR ---
FAMILY MEMBERS DO NOT WANT THE PATIENT TO BE DISTURBED OR TURNED WHILE RESTING/SLEEPING.
[2019-03-11] MEDS: MIRTAZAPINE 15 MG TAB PO SCH (12:05)
[2019-03-11] MEDS: PREGABALIN 50 MG CAP PO SCH (12:05)
[2019-03-11] MEDS: FUROSEMIDE 40 MG TAB PO SCH (12:05)
[2019-03-11] MEDS: FAMOTIDINE 20 MG/2 ML VIAL IV SCH ×2 (12:05→21:11)
[2019-03-11] MEDS ORDERED: BISACODYL 10 MG SUPP PR NR (15:00)
--- NOTE | 2019-03-11 15:41 | NUR ---
CM MET W PT, AND DTR AT THE BEDSIDE. DISCUSSED CHOICE FOR HOSPICE. THE STATES THE GRANDDAUGHTER WAS STILL LOOKING INTO IT. INFORMED [facility] LIASON WILL BE HERE TODAY. STATES SHE WOULD LIKE TO SPEAK WITH HER, BECAUSE THE LADY A[facility]OSS [facility] [place] HAD RECOMMENDED THEM. DID NOT SIGN CHOICE. CM WILL F/U W MEETING IN THE AM. CALL TO TERRELL Smith [facility] @ [phone]. STATES SHE WILL MEET W THE THIS PM. INFORMED.
[2019-03-11] MEDS: METOPROLOL SUCCINATE 50 MG TAB XL PO SCH (18:06)
--- NOTE | 2019-03-11 19:29 | NUR ---
PATIENT IN STABLE CONDITION WITH NO S/S OF RESPIRATORY DISTRESS. DIAPER APPLIED. HEEL PROTECTORS APPLIED. BED ALARM ON. CALL LIGHT IS WITHIN REACH, PATIENT INSTRUCTED TO CALL FOR ASSISTANCE NEEDED. BEDSIDE REPORT GIVEN TO ONCOMING NURSE.
--- NOTE | 2019-03-11 19:43 | NUR ---
PT IS RESTING IN BED WITH FAMILY AT BEDSIDE. RESPIRATION IS EVEN AND UNLABORED, NO DISTRESS NOTED. BED IN THE LOWEST POSITION, LOCKED, BED ALARM ON, AND CALL LIGHT WITHIN REACH. WILL CONTINUE TO MONITOR.
[2019-03-11] MEDS: POLYETHYLENE GLYCOL 3350 17 GM PACK PO SCH (21:11)
--- NOTE | 2019-03-11 23:02 | NUR ---
IM- progress note O/N no events ros; no f/c/s/N/V/D/MAGALLON/vision changes/back pain/leg pain/skin rash v/s; revd PE tired appearing anicteric ns1s2; IRREGULAR mod bs soft nt nd 2+ leg edema B/L skin dry a&ox3; alamo n. mood labs/meds rev'd A/P: 88yoM A.fib with rVR CAD with hx CABG Cardiomegaly NUNU Hyperglycemia Cirrhosis Acute bronchitis Peripheral edema PLAN AV blockade; AC hba1c/lipids/TSH Physical therapy consult AC 03/07 Hba1c/LDL 5.4; continue diuresis; strict I/O.HR better; check renal fn. 03/08 stable; physical therapy; diuresis 03/09 check labs on lasix 03/10 family wants hospice. CM consulted. 03/11 hospice eval ongoing; pt comfortable; Hero Mondragon MD, PhD
[2019-03-12] VITALS: BP 124/74
[2019-03-12] MEDS: HYDROCODONE/APAP 7.5MG-325MG 1 EA TAB PO PRN (03:05)
--- NOTE | 2019-03-12 07:10 | NUR ---
PATIENT IN STABLE CONDITION WITH NO S/S OF RESPIRATORY DISTRESS. NO PAIN VOICED. FAMILY MEMBER IN THE ROOM. PATIENT'S FAMILY MEMBERS DO NOT WANT THE PATIENT TO BE TURNED OR WAKEN WHILE THE PATIENT IS SLEEPING- REFUSED TURN THIS MORNING. CALL LIGHT IS WITHIN REACH, PATIENT INSTRUCTED TO CALL FOR ASSISTANCE NEEDED.
[2019-03-12 08:00] VITALS: BP 97/65
[2019-03-12] MEDS: POLYETHYLENE GLYCOL 3350 17 GM PACK PO SCH (08:09)
[2019-03-12] MEDS: FAMOTIDINE 20 MG/2 ML VIAL IV SCH (08:09)
[2019-03-12] MEDS: PREGABALIN 50 MG CAP PO SCH (08:11)
[2019-03-12] MEDS: MIRTAZAPINE 15 MG TAB PO SCH (08:11)
[2019-03-12 08:30] VITALS: BP 97/65
[2019-03-12] MEDS: FUROSEMIDE 40 MG TAB PO SCH (09:00)
[2019-03-12] MEDS: METOPROLOL SUCCINATE 50 MG TAB XL PO SCH (09:00)
[2019-03-12] MEDS ORDERED: LORAZEPAM INJ 2 MG/ML VIAL IV PRN (11:15)
[2019-03-12 12:07] VITALS: BP 98/70
--- NOTE | 2019-03-12 12:43 | NUR ---
GOT CHOICE LETTER FOR [facility], GOT IMM SIGNED AND FILED ON CHART WITH COPY LEFT WITH FAMILY AT BEDSIDE. PT TO BE TRANSPORTED AFTER EQUIPMENT IS DELIVERED TO HOME WITH COMMUNITY RELATIONS ASSISTANT (NON SPOUSE)
--- NOTE | 2019-03-12 13:18 | NUR ---
IV REMOVED WITH TIP INTACT. SIGNED DISCHARGE PAPERWORK.
--- NOTE | 2019-03-12 15:01 | NUR ---
PATIENT DISCHARGE HOME WITH HOME HOSPICE- PATIENT OFF THE UNIT PER STRETCHER AT [phone] WITH 3 PERSON EMS SERVICE. PATIENT IN STABLE CONDITION WITH NO S/S OF RESPIRATORY DISTRESS. NO PAIN VOICED. PATIENT VOIDED- PATIENT CLEANED AND DIAPER APPLIED. 02 APPLIED. DISCHARGE TEACHING AND INSTRUCTIONS GIVEN TO THE PATIENT AND HIS . ALL PERSONAL ITEMS WERE TAKEN WITH THE PATIENT AND HIS .
[2019-03-12] MEDS ORDERED: FAMOTIDINE 20 MG TAB PO SCH (21:00)
== END 2019-03-12 14:41 | disposition hospice, home (50) | DRG 308 ==
LOC: ER 04:41 → ERHOLD 06:45 → MED/SURG3 13:09
PROVIDERS: ADMIT Internal Medicine; ATTEND Internal Medicine
DX: I48.91 Unspecified atrial fibrillation (principal); I50.23 Acute on chronic systolic (congestive) heart failure; N17.9 Acute kidney failure, unspecified; I11.0 Hypertensive heart disease with heart failure; I35.8 Other nonrheumatic aortic valve disorders; E78.00 Pure hypercholesterolemia, unspecified; Z66 Do not resuscitate; I25.10 Atherosclerotic heart disease of native coronary artery without angina pectoris; Z95.1 Presence of aortocoronary bypass graft; G62.9 Polyneuropathy, unspecified; I73.9 Peripheral vascular disease, unspecified; Z85.038 Personal history of other malignant neoplasm of large intestine; R53.81 Other malaise; I35.0 Nonrheumatic aortic (valve) stenosis; E78.5 Hyperlipidemia, unspecified; I34.0 Nonrheumatic mitral (valve) insufficiency; R62.7 Adult failure to thrive; Z68.24 Body mass index [BMI] 24.0-24.9, adult
CPT/HCPCS: 36415; 71045; 71250; 74018; 74176; 80053; 80061; 81001; 82150; 82550; 82553; 83036; 83690; 83735; 83880; 84100; 84443; 84484; 85025; 85610; 85730; 87040; 93005; 93306; 97139; 99284; J1644; J1940; J2060; J2405; J7050